=== PATIENT | female | born 1985 | race Caucasian/White ===

== ENCOUNTER 2019-05-03 12:37 | Outpatient (CLI) | payer MEDICAID, SELFPAY ==
[2019-05-03 13:12] LABS: Hemoglobin A1C 5.2 % (3.8-5.6)
[2019-05-03 14:01] LABS: FREE T4 1.05 ng/dL (0.76-1.46); TSH 1.11 uIU/mL (0.36-3.74)
[2019-05-04 10:18] LABS: Calculated LDL 171 mg/dL (<100); Cholesterol 231 mg/dL (<200); HDL Cholesterol 44 mg/dL (40-60); Triglyceride 80 mg/dL (<150)
[2019-05-04 15:36] LABS: IgA 305 mg/dL (85-499); Tissue Transglutaminase IgA <1.2 U/mL (<4.0)
== END 2019-05-03 12:57 ==
PROVIDERS: PCP Nurse Practitioner Family; Visit Provider Nurse Practitioner Family
DX: F41.1 Generalized anxiety disorder (principal); K90.49 Malabsorption due to intolerance, not elsewhere classified; E66.9 Obesity, unspecified
CPT/HCPCS: 36415; 80061; 82784; 83516; 83036; 84439; 84443

== ENCOUNTER 2019-08-15 08:16 | Outpatient (CLI) | payer MEDICAID, SELFPAY ==
--- NOTE | 2019-08-15 08:45 | DI.US_ITS ---
EXAM: US PELVIS TRANSVAGINAL CLINICAL HISTORY: right ovary pain,RT OVARIAN CYST,N83.201 TECHNIQUE: Ultrasound performed using standard protocol. COMPARISON: No exams were available for comparison FINDINGS: Pelvic ultrasound was performed transabdominally and transvaginally. Please see the accompanying carmen a sheet for measurements of the pelvic structures. There is an IUD noted in appropriate position in the endometrial cavity. The ovaries have a normal follicular appearance bilaterally. No myometrial abnormality seen. No free fluid identified in pelvis. Limited scanning of the kidneys shows no evidence hydronephrosis or nephrolithiasis. IMPRESSION: Negative pelvic ultrasound, IUD in place. DATA REPOSITORY:
== END 2019-08-15 08:36 ==
PROVIDERS: PCP Nurse Practitioner Family; Visit Provider Surgery
DX: N83.291 Other ovarian cyst, right side (principal); Z97.5 Presence of (intrauterine) contraceptive device
CPT/HCPCS: 76830; 76856

== ENCOUNTER 2019-08-15 15:11 | Outpatient (CLI) | payer MEDICAID, SELFPAY ==
--- NOTE | 2019-08-15 14:00 | DI.RAD_ITS ---
EXAM: XR CERVICAL SPINE COMP 4-5V CLINICAL HISTORY: neck pain/crunching for 3 months, M54.2-CERVICALGIA TECHNIQUE: COMPARISON: No exams were available for comparison FINDINGS: Five views were obtained. Cervical alignment appears within normal limits. The intervertebral disc spaces are well maintained. No bony abnormality seen. Neural foramina appear intact as visualized. Tracheo laryngeal air shadow is unremarkable. IMPRESSION: Negative examination of the cervical spine.
--- NOTE | 2019-08-15 14:00 | DI.RAD_ITS ---
EXAM: XR LUMBAR SPINE COMPLETE CLINICAL HISTORY: ACUTE BILATERAL LOW BACK PAIN, M54.5 TECHNIQUE: COMPARISON: No exams were available for comparison FINDINGS: Seven views were obtained. The intervertebral disc spaces appear fairly well maintained. Note is ma de of an IUD in the pelvic midline. Question mild sclerosis in the iliac bones adjacent to the SI chuyita ints. There is no evidence of spondylolysis or spondylolisthesis. No vertebral compression fracture seen. No other significant bony abnormality identified. IMPRESSION: Question sclerosis of iliac bones adjacent to SI joints, please correlate clinically regarding any ev idence of sacroiliitis. Otherwise examination is within normal limits. If there is a clinical suspicion of sacroiliitis, additional evaluation with MRI may be considered.
== END 2019-08-15 15:31 ==
PROVIDERS: PCP Nurse Practitioner Family; Visit Provider Family Medicine
DX: M54.5 Low back pain (principal); M54.2 Cervicalgia; Z97.5 Presence of (intrauterine) contraceptive device; M89.8X8 Other specified disorders of bone, other site
CPT/HCPCS: 72050; 72110

== ENCOUNTER 2019-09-06 19:51 | Outpatient (REF) | payer MEDICAID, SELFPAY ==
[2019-09-06 20:04] LABS: HCT 41.6 % (36.0-46.0); HGB 14.1 g/dL (12.0-15.5); Mean Corp. HGB Concentration 33.9 g/dL (32.0-36.0); Mean Corpuscular Hemoglobin 29.3 pg (27.0-33.0); Mean Corpuscular Volume 86.3 fL (80-95); Mean Platelet Volume 11.8 fL (8.0-11.0); Platelet Count 247 x1000/uL (130-400); RBC 4.82 m/cumm (4.00-5.20); RBC Distribution Width 13.7 % (11.7-14.6); White Blood Cell Count 5.59 k/cumm (4.4-10.8)
[2019-09-06 21:11] LABS: ESR 10 mm/hr (0-20)
== END 2019-09-06 20:11 ==
LOC: LBN 19:51
PROVIDERS: PCP Nurse Practitioner Family; Visit Provider Nurse Practitioner Family
DX: M25.551 Pain in right hip (principal); M54.2 Cervicalgia
CPT/HCPCS: 85027; 85652

== ENCOUNTER 2019-09-07 13:25 | Outpatient (REF) | payer MEDICAID, SELFPAY ==
[2019-09-07 13:59] LABS: ALT 23 U/L (14-59); AST 15 U/L (15-37); Albumin 4.6 g/dL (3.4-5.0); Alkaline Phosphatase 52 U/L (46-116); Anion Gap 11.7 mmol/L (3-11); BUN 15 mg/dL (7-18); CO2 27.3 mmol/L (21.0-32.0); CREATININE 0.69 mg/dL (0.55-1.02); Calcium 10.1 mg/dL (8.5-10.1); Chloride 100 mmol/L (98-107); Glucose 77 mg/dL (74-106); Sodium 139 mmol/L (136-145)
[2019-09-07 21:18] LABS: CRP, High Sensitivity 0.72 mg/L (See Note); Rheumatoid Factor <8.6 IU/mL (<12.0)
[2019-09-10 11:19] LABS: Lyme Ab w Rflx to Lyme Confirm Negative (Negative)
[2019-09-10 14:33] LABS: ANA Interpretation Positive (Negative); ANA Titer Pattern 1:80 Speckled
[2019-09-11 13:04] LABS: Anaplasma phagocytophilum Negative (Negative); B. miyamotoi PCR Negative (Negative); Babesia divergens/MO-1 Negative (Negative); Babesia duncani Negative (Negative); Babesia microti Negative (Negative); Ehrlichia chaffeensis Negative (Negative); Ehrlichia ewingii/canis Negative (Negative); Ehrlichia muris eauclairensis Negative (Negative)
== END 2019-09-07 13:45 ==
LOC: LBN 13:25
PROVIDERS: PCP Nurse Practitioner Family; Visit Provider Nurse Practitioner Family
DX: M25.50 Pain in unspecified joint (principal)
CPT/HCPCS: 80053; 86141; 87798; 86038; 86431; 86618

== ENCOUNTER 2019-12-18 01:00 | Outpatient (CLI) | payer MEDICAID, SELFPAY ==
--- NOTE | 2019-12-18 12:56 | DI.US_ITS ---
APPROVED REPORT EXAM: Comprehensive 2D, Doppler, and color-flow Echocardiogram Patient Location: Out-Patient Physical Education Teacher: Brianna Coles RDCS (AE) Indications: Murmur, Fatigue Other Information Study Quality: Good Conclusion Normal left ventricular wall thickness and chamber size. Normal ejection fraction, approximately 60 to 65%. There are no segmental wall motion abnormalities The right ventricle is normal in size and function Both atria are normal in size There are no structural valvular abnormalities Trace mitral, tricuspid, and pulmonic regurgitation Normal estimated right ventricular systolic pressure Wall motion Left Ventricle The left ventricle is normal size. The left ventricular systolic function is normal. The left ventric ular ejection fraction is within the normal range. There is normal left ventricular wall thickness. T here is normal LV segmental wall motion. There is no ventricular septal defect visualized. LVEF is 66 %. Right Ventricle The right ventricle is normal size. The right ventricular systolic function is normal. The RVSP is 28 .6 mmHg. Atria The left atrium size is normal. The right atrium size is normal. The interatrial septum is intact wit h no evidence for an atrial septal defect. Aortic Valve The aortic valve is normal in structure. Aortic valve is trileaflet. There is no aortic valvular sten osis. No aortic regurgitation is present. Mitral Valve The mitral valve is normal in structure. No evidence of mitral valve stenosis. Trace mitral regurgita tion. Tricuspid Valve The tricuspid valve is normal in structure. There is no tricuspid valve stenosis. Trace tricuspid reg urgitation. Pulmonic Valve The pulmonary valve is normal in structure. There is no pulmonic valvular stenosis. Trace pulmonic re gurgitation. Great Vessels The aortic root is normal in size. The ascending aorta is normal in size. Aortic arch is normal in ca liber. IVC is normal in size and collapses >50% with inspiration. Pericardium There is no pericardial effusion. 2D Dimensions IVSD d PLAX 0.91 cm F: 0.6-1.0 LV Vol A2C d MOD 130.6 mL LVPW d PLAX 0.92 cm F: 0.6 - 1.0 LV Vol A4C d MOD 114.9 mL LVID d PLAX 5.25 cm F: 3.8 - 5.2 LA vol/ BSA A2C s A-L 31.7 mL/m2 LVDs 3.35 cm F: 2.2 - 3.5 LA vol/ BSA A4C s A-L 26.1 mL/m2 Ao Root d 2.90 cm F: 2.7 - 3.3 LA Vol/ BSA Biplane s A-L 29.6 mL/m2 RA Area A4C 14.61 cm2 LA Area A4C s MOD 18.69 cm2 RA Vol/ BSA A4C s A-L 18.4 mL/m2 LA Area A2C s MOD 20.01 cm2 Ao Asc Diam d 3.08 cm F: 2.3 - 3.1 LV EF A4C MOD 67.3 % LV EF Teichholz 64.9 % LV EF A2C MOD 66.3 % LVEF (Castellanos's) 66.46 % F: 54 - 74 LV EF Biplane MOD 66.5 % LV Volume 92.98 mL F: 46 - 106 SV 81.79 mL LV Volume Index 47.68 mL/m2 F: 29 - 61 SV Index 41.80 mL/m2 LV Vol Biplane MOD 123.1 mL FS 35.80 % M-Mode TAPSE 2.84 cm (M/F) >1.7 LV Diastology MV E' medial 0.101 (>0.07 m/s) E/A Ratio 1.2 LV E/e MED 7.20 (<14) MV E Vmax 0.73 (0.4-1.3 m/s) MV E' lateral 0.199 (>0.1 m/s) MV A Vmax 0.60 (0.4-1.3 m/s) LV E/e LAT 3.65 (<14) MV E/A Ratio 1.13 MV E/E' medial 7.23 MV E/E' lateral 3.69 Aortic Valve LVOT Area 3.86 cm2 AoV Area Vmax 2.91 cm2 LVOT Vmax 1.22 m/s AoV Area/ BSA (Vmax) 1.49 cm2/m2 LVOT Mean Chad. 0.74 m/s ALLEN Mean Chad. 2.33 cm2 LVOT Peak Grad 6.0 mmHg ALLEN Mean Chad. Index 1.19 cm2/m2 LVOT Mean Grad 2.7 mmHg LVOT VTI 0.256 m LVOT Diam s 2.20 cm AoV Vmax 1.63 m/s Velocity Ratio 0.74 AoV Mean Chad. 1.22 m/s AoV Peak Grad 10.6 mmHg LVOT SV 98.72 mL AoV Mean Grad 6.5 mmHg AoV VTI 0.316 m AoV Area VTI 3.12 cm2 AoV Area/ BSA (VTI) 1.59 cm/m2 Mitral Valve MV DT 273 (160-240 msec) MV PHT 79 msec MV Area PHT 2.77 cm2 Pulmonary Valve PV Vmax 1.02 (0.5-1.5 m/s) RVOT Peak Gr. 2.58 mmHg PV Peak Grad 4.2 mmHg RVOT Mean Gr. 1.30 mmHg PV Mean Grad 2.1 mmHg RVOT VTI 0.174 m PV VTI 0.222 m RVOT Vmax 0.80 m/s Tricuspid Valve TR Peak Grad 25.6 mmHg TR Vmax 2.53 m/s RA Pressure 3.00 mmHg RVSP (TR) 28.6 mmHg
== END 2019-12-18 01:20 ==
PROVIDERS: PCP Nurse Practitioner Family; Visit Provider Nurse Practitioner Family
DX: R01.1 Cardiac murmur, unspecified (principal); R53.83 Other fatigue
CPT/HCPCS: 93306

== ENCOUNTER 2020-08-08 18:26 | Outpatient (REF) | payer MEDICAID, SELFPAY ==
[2020-08-08 19:07] LABS: HCG Qual (Serum) Negative
[2020-08-11 11:46] LABS: Lyme Ab w Rflx to Lyme Confirm Negative (Negative)
[2020-08-11 15:12] LABS: Chlamydia Result Negative (Negative); GC Result Negative (Negative)
[2020-08-12 04:12] LABS: Anaplasma phagocytophilum Negative (Negative); B. miyamotoi PCR Negative (Negative); Babesia divergens/MO-1 Negative (Negative); Babesia duncani Negative (Negative); Babesia microti Negative (Negative); Ehrlichia chaffeensis Negative (Negative); Ehrlichia ewingii/canis Negative (Negative); Ehrlichia muris eauclairensis Negative (Negative)
== END 2020-08-08 18:27 | disposition home or self-care (01) ==
LOC: LBN 18:26
PROVIDERS: PCP Nurse Practitioner Family; Visit Provider Physician Assistant
DX: R10.30 Lower abdominal pain, unspecified (principal); N39.0 Urinary tract infection, site not specified; R39.15 Urgency of urination; G89.29 Other chronic pain; N89.8 Other specified noninflammatory disorders of vagina
CPT/HCPCS: 87491; 87591; 87798; 84443; 84703; 86618; 87086; 87480; 87510; 87660

== ENCOUNTER 2020-08-20 01:22 | Outpatient (CLI) | payer MEDICAID, SELFPAY ==
--- NOTE | 2020-08-20 06:45 | DI.MRI_ITS ---
Exam(s) MR LUMBAR SPINE WO EXAM: MR LUMBAR SPINE WO CLINICAL HISTORY: Left sided low back pain for over 3 yrs, chronic pain, M54.5, G89.29. TECHNIQUE: Multiplanar multisequence MRI of the Lumbar spine was performed. COMPARISON: CR XR LUMBAR SPINE COMPLETE from 08/15/2019 CR XR LUMBAR SPINE COMPLETE from 08/15/2019 FINDINGS: Plain films of 08/15/2019 were reviewed Conus medullaris is at normal level. There is no evidence of conus mass nor subjacent clumping of in trathecal nerve roots to suggest arachnoiditis. The distal thecal sac appears unremarkable.There is no evidence of Tarlov intrasacral cysts nor other significant findings within the sacral canal Bones:There are no fractures nor ominous osseous lesions in the lumbar vertebral bodies and visualize d sacrum. With respect to the individual levels... T12-L1: Unremarkable L1-2: Normal disc height and signal. No disc herniation nor central canal stenosis.No foraminal steno sis L2-3: Normal disc height. No disc herniation nor central canal stenosis.No foraminal stenosis.No face t arthropathy. L3-4: Normal disc height. No disc herniation or central canal stenosis.No foraminal stenosis.No face t arthropathy. L4-5: Normal disc height. A small central subligamentous disc herniation which extends posteriorly 2 millimeters and is approximately 1.2 cm wide. This slightly indents the anterior thecal sac. Centr al canal dimensions are within normal limits. There is no extension of disc material into the neural foramina and there is no evidence of foraminal stenosis at this level. No facet arthropathy L5-S1: Normal disc height. On the left side there is a radial tear in the outer annulus, this at the level of the exiting neural foramen. However, there is no significant disc herniation at this time. Central canal dimensions of the normal limits. There is no prominent foraminal stenosis on either side at this level. No facet arthropathy Soft tissues: paraspinal soft tissues appear unremarkable. IMPRESSION: 1. At L4-5 level there is a small central subligamentous disc protrusion as described above. No prom inent central canal stenosis nor foraminal stenosis. 2. Left-sided annular tear evident on the left side at L5-S1 level without a disc herniation at this time. No central nor foraminal stenosis at this level. 3. No evidence of fracture or listhesis nor ominous osseous lesions. DATA REPOSITORY:
== END 2020-08-20 01:42 ==
PROVIDERS: PCP Nurse Practitioner Family; Visit Provider Nurse Practitioner Family
DX: M51.26 Other intervertebral disc displacement, lumbar region (principal); M51.37 Other intervertebral disc degeneration, lumbosacral region
CPT/HCPCS: 72148

== ENCOUNTER 2020-11-13 00:44 | Outpatient (CLI) | payer MEDICAID, SELFPAY ==
--- NOTE | 2020-11-13 12:00 | DI.MRI_ITS ---
Exam(s) MR LOWER JOINT RT WO EXAM: MR LOWER JOINT RT WO CLINICAL HISTORY: Continued pain to achilles tendon,strain,s86.011a TECHNIQUE: Multiplanar multisequence MRI was performed without intravenous contrast. COMPARISON: No exams were available for comparison FINDINGS: SKIN: No evidence of ulcer nor subcutaneous tract. BONES/JOINTS: No evidence of stress fracture nor bone contusion. Minimal amount of increased fluid i n the ankle joint noted. The talar dome appears unremarkable. The ankle mortise is maintained. The re is no evidence of para-articular ganglion.There is no evidence of osseous tarsal coalition. LIGAMENTS: The anterior and posterior tibiofibular and calcaneofibular ligaments are intact. The ante rior and posterior talofibular ligaments are intact. The deltoid ligament is intact. SINUS TARSI: There is effacement of the normal fat signal in this space. Interosseous ligament is in tact. There is no evidence of sinus tarsi ganglion cyst. ANTEROLATERAL GUTTER:There is no abnormal signal/abnormal tissue in this space. MUSCULOTENDINOUS STRUCTURES: Achilles tendon: Minimal if any significant thickening. No evidence of tear. However, there is smal l area of increased signal at the insertional aspect of the tendon on the posterior calcaneus, this i ncreased signal being medial of center. Consistent with an element of insertional tendinitis. Plantar fascia: Unremarkable. No evidence of tear, abnormal thickening, nor abnormal nodularity. Anterior Extensor tendons: Unremarkable. Medial Tendons: Posterior Tibialis: Unremarkable. No tear or tenosynovitis evident. Flexor Digitorum longus: Unremarkable. No tear or tenosynovitis evident. Flexor Hallicus longus: Unremarkable. No tear or tenosynovitis evident. Lateral Tendons: Peroneus longus: Unremarkable. No tear nor tenosynovitis evident. Peroneus brevis:Unremarkable. No tear nor tenosynovitis evident. SOFT TISSUES: Unremarkable. No abnormal fluid collection OTHER FINDINGS: There are some venous varicosities posteriorly, on the lateral aspect of the ankle. IMPRESSION: 1. Mild insertional tendinitis of the Achilles, with the increased signal more evident medial than l ateral at this level. No evidence of plantar fasciitis. 2. Mild amount of increased fluid in the ankle joint. No large joint effusion. No evidence of para- articular ganglion. 3. No significant ligament nor tendon tears. No evidence of tenosynovitis. DATA REPOSITORY:
== END 2020-11-13 01:04 ==
PROVIDERS: PCP Nurse Practitioner Family; Visit Provider Nurse Practitioner Family
DX: S86.011A Strain of right Achilles tendon, initial encounter (principal); M76.61 Achilles tendinitis, right leg
CPT/HCPCS: 73721

== ENCOUNTER 2021-03-30 13:57 | Outpatient (REF) | payer MEDICAID, SELFPAY ==
[2021-04-01 15:57] LABS: COVID-19 RT-PCR UVMMC Result Positive (Negative)
== END 2021-03-30 13:58 | disposition home or self-care (01) ==
LOC: LBN 13:57
PROVIDERS: PCP Nurse Practitioner Family; Visit Provider Family Medicine
DX: R05.8 Other specified cough (principal); Z20.822 Contact with and (suspected) exposure to COVID-19
CPT/HCPCS: U0003

== ENCOUNTER 2022-03-01 08:49 | Outpatient (CLI) | payer MEDICAID, SELFPAY | END 2022-03-01 08:50 | disposition home or self-care (01) | LOC: CARDOPNVT 08:49 | PROVIDERS: PCP Nurse Practitioner Family; Visit Provider Nurse Practitioner Family | DX: R55 Syncope and collapse (principal) | CPT/HCPCS: 93270 ==

== ENCOUNTER 2022-04-01 08:45 | Outpatient (CLI) | payer MEDICAID, SELFPAY ==
--- NOTE | 2022-04-01 09:33 | W.CARDEVENT ---
Date of service: 04/01/22 Time of Service: 09:33 Cardiac Event Recorder Referring Provider:: Iris Wise Indications:: Syncope Cardiac Event Note: This is a 30-day cardiac event recorder. Patient was monitored for approximately 19 days Rhythm throughout was sinus with an average heart rate of 61. Minimum was 42, maximum 142 There was one 5 beat run of nonsustained ventricular tachycardia There was no atrial fibrillation, no high-grade AV block, no pauses greater than 3 seconds
== END 2022-04-01 08:46 | disposition home or self-care (01) ==
LOC: CARDOPNVT 08:45
PROVIDERS: PCP Nurse Practitioner Family; Visit Provider Internal Medicine Cardiovascular Disease
DX: I47.20 Ventricular tachycardia, unspecified (principal)

== ENCOUNTER 2023-03-29 13:15 | Outpatient (CLI) | payer SELFPAY ==
[2023-03-29 14:25] LABS: ALT 27 U/L (14-59); AST 20 U/L (15-37); Albumin 4.4 g/dL (3.4-5.0); Alkaline Phosphatase 38 U/L (46-116); Anion Gap 5.9 mmol/L (3-11); BUN 14 mg/dL (7-18); Bilirubin, Total 0.7 mg/dL (0.2-1.0); CO2 29.1 mmol/L (21.0-32.0); CREATININE 0.7 mg/dL (0.55-1.02); Calculated LDL 172 mg/dL (<100); Chloride 102 mmol/L (98-107); Cholesterol 247 mg/dL (<200); Estimated GFR 113.46 (mL/min/1.73m2); Glucose 85 mg/dL (74-106); HDL Cholesterol 55 mg/dL (40-60); Potassium 3.8 mmol/L (3.5-5.1); Sodium 137 mmol/L (136-145); TSH (W/Ref FT4) 1.92 uIU/mL (0.36-3.74); Total Protein 8.4 g/dL (6.4-8.2); Triglyceride 100 mg/dL (<150)
[2023-03-31 12:08] LABS: TB Interpretation Negative (Negative)
== END 2023-03-29 13:16 | disposition home or self-care (01) ==
LOC: LBO 13:16
PROVIDERS: PCP Nurse Practitioner Family; Visit Provider Family Medicine
DX: Z02.1 Encounter for pre-employment examination (principal); E78.5 Hyperlipidemia, unspecified
CPT/HCPCS: 36415; 80053; 80061; 84443; 86480

== ENCOUNTER 2023-04-25 18:34 | Outpatient (REF) | payer MEDICAID, SELFPAY ==
[2023-04-25 19:47] LABS: Bilirubin Negative (Negative); Blood Negative (Negative); Clarity Clear (Clear); Glucose Negative (Negative); Ketones Negative (Negative); Leukocyte Esterase Trace (Negative); Nitrite Negative (Negative); Specific Gravity 1.015 (1.005-1.025); Urobilinogen 0.2 mg/dL (Up to 0.2)
[2023-04-25 19:56] LABS: Bacteria Rare HPF (Negative); C & S Indicated? Yes; Casts Negative LPF (Negative); Crystals Negative HPF (Negative); Epithelial Cells Few HPF (Negative); Mucus Negative (Negative); RBC Negative HPF (0-2)
== END 2023-04-25 18:35 | disposition home or self-care (01) ==
LOC: NCHCN 18:34
PROVIDERS: PCP Nurse Practitioner Family; Visit Provider Nurse Practitioner Family
DX: M54.50 Low back pain, unspecified (principal)
CPT/HCPCS: 81003; 81015; 87086

== ENCOUNTER 2023-04-27 14:47 | Outpatient (CLI) | payer MEDICAID, SELFPAY ==
[2023-04-27 14:15] LABS: Abs Immature Grans 0.01 10^3/uL (0.0-0.06); Absolute Basophil Count 0.07 10^3/uL (0.0-0.2); Absolute Eosinophil Count 0.13 10^3/uL (0.0-0.7); Absolute Monocyte Count 0.49 10^3/uL (0.1-0.8); Absolute Neutrophil Count 3.35 10^3/uL (1.2-6.7); Basophils % 1.2; Eosinophils % 2.3; HCT 41.5 % (36.0-46.0); HGB 14.2 g/dL (11.2-15.7); Immature Grans % 0.2; Lymphocytes % 29.6; MCH 29.4 pg (27.0-33.0); MCHC 34.2 % (32.0-36.0); MCV 86 fL (80-95); MPV 10.5 fL (8.0-11.0); Monocytes % 8.5; Neutrophils % 58.2; Platelet Count 232 10^3/uL (130-400); RBC 4.83 10^6/uL (3.93-5.22); RDW 13.2 % (11.7-14.6); RDW-SD 40.8 fL; WBC 5.75 10^3/uL (4.4-10.8)
[2023-04-27 14:16] LABS: ESR 5 mm/hr (0-20)
[2023-04-27 16:04] LABS: C-Reactive Protein < 0.50 mg/dL (<or=0.5)
[2023-04-27 16:22] LABS: Vitamin D 25 Total 31.3 ng/mL (30-100)
[2023-04-27 16:54] LABS: Vitamin B12 514 pg/mL (193-986)
[2023-04-29 10:29] LABS: IgA 337 mg/dL (85-499); Interpretation (See Note); Tissue Transglutaminase IgA <4.0 CU (<20.0)
[2023-05-02 12:26] LABS: Calprotectin <50.0 mcg/g
== END 2023-04-27 14:48 | disposition home or self-care (01) ==
LOC: LBO 14:47 → LBN 18:12
PROVIDERS: PCP Nurse Practitioner Family; Visit Provider Nurse Practitioner Family
DX: R19.4 Change in bowel habit (principal)
CPT/HCPCS: 36415; 82306; 82784; 83516; 85652; 82607; 83993; 85025; 86140

== ENCOUNTER 2024-04-26 10:28 | Outpatient (CLI) | payer MEDICAID, SELFPAY ==
[2024-04-26 12:28] LABS: Abs Immature Grans 0.01 10^3/uL (0.0-0.06); Absolute Basophil Count 0.07 10^3/uL (0.0-0.2); Absolute Lymphocyte Count 1.59 10^3/uL (1.2-3.4); Absolute Monocyte Count 0.55 10^3/uL (0.1-0.8); Absolute Neutrophil Count 2.71 10^3/uL (1.2-6.7); Basophils % 1.4 %; HCT 42.7 % (36.0-46.0); HGB 14.5 g/dL (11.2-15.7); Immature Grans % 0.2 %; Lymphocytes % 31.6 %; MCH 30.2 pg (27.0-33.0); MCV 89 fL (80-95); Monocytes % 10.9 %; Neutrophils % 53.9 %; Platelet Count 234 10^3/uL (130-400); RDW 13.5 % (11.7-14.6); RDW-SD 44.1 fL; WBC 5.03 10^3/uL (4.4-10.8)
[2024-04-26 12:39] LABS: ESR 8 mm/hr (0-20)
[2024-04-26 13:22] LABS: ALT 25 U/L (14-59); AST 18 U/L (15-37); Albumin 4.4 g/dL (3.4-5.0); Alkaline Phosphatase 57 U/L (46-116); Anion Gap 6.2 mmol/L (3-11); BUN 23 mg/dL (7-18); Bilirubin, Total 0.8 mg/dL (0.2-1.0); CO2 29.8 mmol/L (21.0-32.0); CREATININE 0.8 mg/dL (0.55-1.02); Calcium 9.8 mg/dL (8.5-10.1); Calculated LDL 196 mg/dL (<100); Chloride 105 mmol/L (98-107); Cholesterol 268 mg/dL (<200); Estimated GFR 96.06 (mL/min/1.73m2); Glucose 77 mg/dL (74-106); HDL Cholesterol 59 mg/dL (>or=50); Potassium 4.2 mmol/L (3.5-5.1); Sodium 141 mmol/L (136-145); TSH (W/Ref FT4) 1.49 uIU/mL (0.36-3.74); Total Protein 8.1 g/dL (6.4-8.2); Triglyceride 69 mg/dL (<150); Vitamin D 25 Total 40 ng/mL (30-100)
[2024-04-26 13:26] LABS: C-Reactive Protein < 0.50 mg/dL (<or=0.5)
[2024-04-26 14:54] LABS: Hemoglobin A1C 4.9 % (<5.7)
[2024-04-26 17:53] LABS: Rheumatoid Factor <8.6 IU/mL (<12.0)
[2024-04-27 09:48] LABS: HIV-1/2 Ag & Ab Screen Negative (Negative)
[2024-04-27 09:55] LABS: ANA Interpretation Negative (Negative)
[2024-04-27 10:08] LABS: Hepatitis C Ab w Rflx HCV PCR Negative (Negative)
[2024-04-27 10:28] LABS: dsDNA Ab, IgG 27.3 IU/mL (<27.0)
[2024-04-27 10:46] LABS: Lyme Ab w Rflx to Lyme Confirm Negative (Negative)
[2024-04-27 11:40] LABS: HBs Antibody, Quant >1000.0 mIU/mL (See Note); Hep B Surface Ab Positive (See Note); Hepatitis B Core Antibody Negative (Negative); Hepatitis B Surface Antigen Negative (Negative)
[2024-04-28 23:49] LABS: Anaplasma phagocytophilum Negative (Negative); B. miyamotoi PCR Negative (Negative); Babesia divergens/MO-1 Negative (Negative); Babesia duncani Negative (Negative); Babesia microti Negative (Negative); Ehrlichia chaffeensis Negative (Negative); Ehrlichia ewingii/canis Negative (Negative); Ehrlichia muris eauclairensis Negative (Negative)
[2024-04-30 12:45] LABS: TB Interpretation Negative (Negative)
== END 2024-04-26 10:29 | disposition home or self-care (01) ==
PROVIDERS: PCP Nurse Practitioner Family; Referring Provider Nurse Practitioner Family; Visit Provider Nurse Practitioner Family
DX: Z78.9 Other specified health status (principal); R53.83 Other fatigue; G89.29 Other chronic pain; Z11.59 Encounter for screening for other viral diseases; Z11.4 Encounter for screening for human immunodeficiency virus [HIV]; E78.5 Hyperlipidemia, unspecified
CPT/HCPCS: 36415; 80053; 80061; 82306; 85652; 86704; 86706; 86803; 87340; 87389; 87798; 83036; 84443; 85025; 86038; 86140; 86225; 86431; 86480; 86618

== ENCOUNTER 2024-12-27 16:38 | Outpatient (REF) | payer MEDICAID, SELFPAY ==
[2024-12-29 15:04] LABS: Bacterial Vaginosis (BV) Negative (Negative); Candida glabrata Negative (Negative); Candida species group Negative (Negative); Chlamydia Result Negative (Negative); GC Result Negative (Negative)
== END 2024-12-27 16:39 | disposition home or self-care (01) ==
LOC: NCHCN 16:38
PROVIDERS: PCP Nurse Practitioner Family; Visit Provider Family Medicine
DX: Z20.2 Contact with and (suspected) exposure to infections with a predominantly sexual mode of transmission (principal); R10.9 Unspecified abdominal pain; K64.4 Residual hemorrhoidal skin tags
CPT/HCPCS: 81513; 87481; 87491; 87591; 87661